=== PATIENT | male | born 1935 | race Two or more races ===

== ENCOUNTER 2018-06-23 16:42 | Inpatient (IN) | payer MEDICARE ==
[2018-06-23] MEDS ORDERED: SODIUM CHLORIDE 0.9% 500 ML 500 ML IV STA (17:37)
[2018-06-23] MEDS ORDERED: ASPIRIN 81 MG PO STA (17:37)
[2018-06-23 17:51] LABS: Basophils % (A) 1 %; Eosinophils # (A) 0.1 k/uL (0-0.7); Eosinophils % (A) 2 %; HCT 50.7 % (39.0-53.0); HGB 16.4 gm/dL (13.0-17.5); Lymphocytes # (A) 1.6 k/uL (1.0-4.8); Lymphocytes % (A) 22 %; MCH 28.8 pg (25.0-35.0); MCHC 32.4 g/dL (31.0-37.0); Mean Platelet Volume 7.1; Monocytes # (A) 0.5 k/uL (0-1.0); Monocytes % (A) 7 %; Neutrophils # (A) 4.9 k/uL (1.3-7.7); Neutrophils % (A) 67 %; Platelet Count 185 k/uL (150-450); RDW 13.4 % (11.5-15.5); WBC 7.3 k/uL (3.8-10.6)
[2018-06-23 18:02] LABS: ALT 22 U/L (21-72); AST 24 U/L (17-59); Albumin 4.3 g/dL (3.5-5.0); Alkaline Phosphatase 53 U/L (38-126); Anion Gap 5 mmol/L; Blood Urea Nitrogen 22 mg/dL (9-20); Calcium 10.1 mg/dL (8.4-10.2); Carbon Dioxide 28 mmol/L (22-30); Chloride 106 mmol/L (98-107); Creatine Kinase 38 U/L (55-170); Glucose 78 mg/dL (74-99); Magnesium 2.4 mg/dL (1.6-2.3); Potassium 4.8 mmol/L (3.5-5.1); Sodium 139 mmol/L (137-145); Total Bilirubin 0.8 mg/dL (0.2-1.3); Total Protein 6.6 g/dL (6.3-8.2)
[2018-06-23 18:06] LABS: INR 1.1 (<1.2); Partial Thromboplastin Time 24.4 sec (22.0-30.0); Prothrombin Time 11.5 sec (9.0-12.0)
--- NOTE | 2018-06-23 18:10 | ED ---
General Adult HPI - General Chief complaint: Arrhythmia/Palpitations Stated complaint: Abnormal EKG-sent from [facility], [place] Time Seen by Provider: 06/23/18 17:10 Source: patient Mode of arrival: wheelchair Limitations: no limitations - History of Present Illness Initial comments: Dictation was produced using IntroBridge dictation software. please excuse any grammatical, word or spelling errors. Chief Complaint: 82-year-old male presents with bradycardia. History of Present Illness: He is 82-year-old male with past medical history of CVA, myocardial infarction, coronary artery disease presents with lightheadedness. Patient is accompanied by family member. He was seen at an outpatient clinic where he was found to be bradycardic. He went immediately to his PCPs office and was brought to the emergency department. Patient had recurrent measured in the 30s. There is an EKG was performed at PCPs office and was found to be really abnormal he was sent here directly. Patient has no complaints at this time. States that upon exertion he feels symptomatic The ROS documented in this emergency department record has been reviewed and confirmed by me. Those systems with pertinent positive or negative responses have been documented in the HPI. All other systems are other negative and/or noncontributory. PHYSICAL EXAM: General Impression: Alert and oriented x3, not in acute distress, cachectic 60 HEENT: Normocephalic atraumatic, extra-ocular movements intact, pupils equal and reactive to light bilaterally, dry mucous membranes Cardiovascular: Heart regular rate and rhythm, S1&S2 audible, no murmurs, rubs o r gallops Chest: Lungs clear to auscultation bilaterally, no rhonchi, no wheeze, no rales Abdomen: Bowel sounds present, abdomen soft, non-tender, non-distended, no organomegaly Musculoskeletal: Pulses present and equal in all extremities, no peripheral edema Motor: no focal deficits noted Neurological: CN II-XII grossly intact, no focal motor or sensory deficits noted Skin: Intact with no visualized rashes Psych: Normal affect and mood ED course: Laboratory evaluation obtained. CBC, coag panel, metabolic panel is unremarkable. Troponin is negative. Chest x-ray shows mild atelectasis at left lung base. Discussed patient case with Dr. Robles who evaluated patient at bedside. Plans for pacemaker tomorrow. He does request patient be nothing by mouth at midnight. Cardiogenic request patient be placed in the intensive care unit. Discussed patient case with Dr. De Leon of [facility] who requests that he not be put on consult. Patient to be admitted to Dr. Sotelo of [facility]. EKG interpretation: Ventricular rate 35, third-degree AV block, QS 184, QTC 474. - Related Data Home Medications Medication Instructions Recorded Confirmed Aspirin 325 mg PO DAILY 06/23/18 06/23/18 Allergies Allergy/AdvReac Type Severity Reaction Status Date / Time No Known Allergies Allergy Verified 06/23/18 17:28 Review of Systems ROS Statement: Those systems with pertinent positive or pertinent negative responses have been documented in the HPI. ROS Other: All systems not noted in ROS Statement are negative. Past Medical History Past Medical History: CVA/TIA, Myocardial Infarction ([place]) History of Any Multi-Drug Resistant Organisms: None Reported Past Surgical History: Coronary Bypass/CABG, Hernia Repair Additional Past Surgical History / Comment(s): 6 Bypass, Past Psychological History: No Psychological Hx Reported Smoking Status: Former smoker Past Alcohol Use History: Daily Past Drug Use History: None Reported General Exam Limitations: no limitations Course Vital Signs 06/23/18 06/23/18 06/23/18 17:06 18:00 18:30 Pulse Rate 36 L 35 L 34 L Respiratory 18 18 18 Rate Blood Pressure 103/92 167/71 159/76 O2 Sat by Pulse 97 98 Oximetry 06/23/18 19:20 Pulse Rate 35 L Respiratory 18 Rate Blood Pressure 151/64 O2 Sat by Pulse 97 Oximetry Medical Decision Making - Lab Data Result diagrams: 06/23/18 17:15 06/23/18 17:15 Lab Results 06/23/18 06/23/18 06/23/18 Range/Units 17:15 17:15 17:15 WBC 7.3 (3.8-10.6) k/uL RBC 5.70 (4.30-5.90) m/uL Hgb 16.4 (13.0-17.5) gm/dL Hct 50.7 (39.0-53.0) % MCV 89.0 (80.0-100.0) fL MCH 28.8 (25.0-35.0) pg MCHC 32.4 (31.0-37.0) g/dL RDW 13.4 (11.5-15.5) % Plt Count 185 (150-450) k/uL Neutrophils % 67 % Lymphocytes % 22 % Monocytes % 7 % Eosinophils % 2 % Basophils % 1 % Neutrophils # 4.9 (1.3-7.7) k/uL Lymphocytes # 1.6 (1.0-4.8) k/uL Monocytes # 0.5 (0-1.0) k/uL Eosinophils # 0.1 (0-0.7) k/uL Basophils # 0.0 (0-0.2) k/uL PT (9.0-12.0) sec INR (<1.2) APTT (22.0-30.0) sec Sodium 139 (137-145) mmol/L Potassium 4.8 (3.5-5.1) mmol/L Chloride 106 (98-107) mmol/L Carbon Dioxide 28 (22-30) mmol/L Anion Gap 5 mmol/L BUN 22 H (9-20) mg/dL Creatinine 0.87 (0.66-1.25) mg/dL Est GFR (CKD-EPI)AfAm >90 (>60 ml/min/1.73 sqM) Est GFR (CKD-EPI)NonAf 82 (>60 ml/min/1.73 sqM) Glucose 78 (74-99) mg/dL Calcium 10.1 (8.4-10.2) mg/dL Magnesium 2.4 H (1.6-2.3) mg/dL Total Bilirubin 0.8 (0.2-1.3) mg/dL AST 24 (17-59) U/L ALT 22 (21-72) U/L Alkaline Phosphatase 53 (38-126) U/L Creatine Kinase 38 L (55-170) U/L CK-MB (CK-2) 1.4 (0.0-2.4) ng/mL Troponin I 0.017 (0.000-0.034) ng/mL Total Protein 6.6 (6.3-8.2) g/dL Albumin 4.3 (3.5-5.0) g/dL 06/23/18 Range/Units 17:15 WBC (3.8-10.6) k/uL RBC (4.30-5.90) m/uL Hgb (13.0-17.5) gm/dL Hct (39.0-53.0) % MCV (80.0-100.0) fL MCH (25.0-35.0) pg MCHC (31.0-37.0) g/dL RDW (11.5-15.5) % Plt Count (150-450) k/uL Neutrophils % % Lymphocytes % % Monocytes % % Eosinophils % % Basophils % % Neutrophils # (1.3-7.7) k/uL Lymphocytes # (1.0-4.8) k/uL Monocytes # (0-1.0) k/uL Eosinophils # (0-0.7) k/uL Basophils # (0-0.2) k/uL PT 11.5 (9.0-12.0) sec INR 1.1 (<1.2) APTT 24.4 (22.0-30.0) sec Sodium (137-145) mmol/L Potassium (3.5-5.1) mmol/L Chloride (98-107) mmol/L Carbon Dioxide (22-30) mmol/L Anion Gap mmol/L BUN (9-20) mg/dL Creatinine (0.66-1.25) mg/dL Est GFR (CKD-EPI)AfAm (>60 ml/min/1.73 sqM) Est GFR (CKD-EPI)NonAf (>60 ml/min/1.73 sqM) Glucose (74-99) mg/dL Calcium (8.4-10.2) mg/dL Magnesium (1.6-2.3) mg/dL Total Bilirubin (0.2-1.3) mg/dL AST (17-59) U/L ALT (21-72) U/L Alkaline Phosphatase (38-126) U/L Creatine Kinase (55-170) U/L CK-MB (CK-2) (0.0-2.4) ng/mL Troponin I (0.000-0.034) ng/mL Total Protein (6.3-8.2) g/dL Albumin (3.5-5.0) g/dL Disposition Clinical Impression: AV block, 3rd degree Disposition: ADMITTED IP TO THIS [facility] Condition: Critical Referrals: Cliff Jonas MD [Primary Care Provider] - 1-2 days Decision Time: 20:03
[2018-06-23 18:23] LABS: Creatine Kinase MB 1.4 ng/mL (0.0-2.4); Troponin I 0.017 ng/mL (0.000-0.034)
--- NOTE | 2018-06-23 19:03 | XR ---
EXAMINATION TYPE: XR chest 1V portable DATE OF EXAM: 06/23/2018 COMPARISON: NONE HISTORY: Short of breath TECHNIQUE: Single frontal view of the chest is obtained. FINDINGS: There is no heart failure nor confluent pneumonic infiltrate. Costophrenic angles are po r. There are sternal wires. There are chest leads. Thoracic aorta is atheromatous. IMPRESSION: There is mild atelectasis left lung base. No heart failure.
[2018-06-23] MEDS ORDERED: NALOXONE 0.4 MG/ML 1 ML VIAL IV PRN (19:50)
[2018-06-23] MEDS ORDERED: SODIUM CHLORIDE 0.9% 1,000 ML IV SCH (20:00)
[2018-06-23 21:07] LABS: Glucose,Whole Blood 129 mg/dL (75-99)
[2018-06-23 21:50] LABS: T4, Free (Free Thyroxine) 1.21 ng/dL (0.78-2.19)
[2018-06-23] MEDS: ATORVASTATIN 40 MG TAB PO SCH (22:48)
--- NOTE | 2018-06-23 22:52 | CONS ---
CONSULTATION Mr. Stone is an 82-year-old male who presented to the emergency room with complete heart block. He has a known history of coronary artery disease status post coronary artery bypass grafting performed in 2002. He had a ischemic cardiomyopathy with ejection fraction of 35%. Prior recommendation for ICD were made and at that time the patient declined. He was seen in a screening yesterday and was noted to have sinus tachycardia. He was referred to see his primary physician who he saw today and his primary care physician did an EKG that showed complete heart block with a heart rate in the 30s. The patient denies any symptoms with it. He feels tired but there are no acute changes. He has no chest pain, mild dyspnea. No dizziness. No palpitation with ambulation. He has some orthostatic dizziness at times. He denies any prior syncopal episode. He has no significant peripheral edema. He has only medication at home include aspirin. He has stopped the rest of his medication on his own. REVIEW OF SYSTEMS: RESPIRATORY system: Has no recent cough or fever. No history of documented obstructive lung disease. GI system: No recent GI bleeding. No peptic ulcer disease. system: No dysuria or hematuria. NERVOUS SYSTEM: No history of seizure. PHYSICAL EXAMINATION: He is an 82-year-old male, alert, oriented, in no apparent distress. Blood pressure 115/70 with a heart rate in the mid 30s. HEAD: Normocephalic. Eyes sclerae anicteric. NECK: Good upstroke. No bruit. LUNGS: Clear to auscultation. HEART: Regular rate and rhythm, bradycardic S1, S2. No S3 with systolic murmur. No diastolic murmur. ABDOMEN: Soft, nontender. Positive bowel sounds. No organomegaly. EXTREMITIES: Trace to 1+ edema at the ankles. LAB DATA: Lab data revealed a hemoglobin of 16.4, BUN and creatinine 22 and 0.87. Troponin 0.017. Magnesium of 2.4. Chest x-ray shows no acute infiltrate. EKG revealed a sinus mechanism with complete heart block and ventricular rate in the 30s. IMPRESSION: 1. Complete heart block of unknown duration. Patient has no significant symptoms. He is not on any negative chronotropic drugs. 2. History of coronary artery disease status post coronary artery bypass grafting with no evidence to suggest acute coronary syndrome. 3. History of ischemic cardiomyopathy. Patient has declined ICD in the past. RECOMMENDATIONS: At this time, the patient will be admitted. He will be set up to undergo a permanent pacemaker implantation tomorrow. I have discussed those findings with him and his daughter. Since he has no symptoms, I will hold on temporary pacemaker at this time. I will obtain echocardiogram with Doppler. His thyroid function test will be evaluated and depending on his progress, further recommendations will be made. Thank you for this consult. We will follow with you. CLAUDIA / VINCE: [id number] /
[2018-06-24] MEDS: LISINOPRIL 2.5 MG TAB PO SCH ×3 (00:24→21:16)
--- NOTE | 2018-06-24 00:50 | P.HPIM ---
History of Present Illness H&P Date: 06/24/18 The patient is an 82 yo M with a PMH of CAD s/p CABG (2002), systolic CHF, dementia, and hx of CVA presented to the ED after he was discovered to have sinus bradycardia at his PMD's office. The history obtained from chart since patient confused at time of the interview. The patient was reported to be having lightheadedness w/ orthostatics positive over the past few days to weeks. He otherwise denied any complaints. He denied chest pain, SOB, nausea, vomiting, or diaphoresis. Further denied palpitations, fever, chills, or abdominal pain. The patient underwent an extensive evaluation in the ED and was notied to have Troponin 0.017, w/ EKG showing 3rd degree heart-block at a rate of 35 bpm, BUN 22, Cr 0.87, and CXR showing L lung base atalectasis. The patient was subsequently admitted to the medical ICU with cardiology consult for further management. Review of Systems Pertinent positives and negatives as discussed in HPI, a complete review of systems was performed and all other systems are negative. Past Medical History Past Medical History: CVA/TIA, Myocardial Infarction ([place]) History of Any Multi-Drug Resistant Organisms: None Reported Past Surgical History: Coronary Bypass/CABG, Hernia Repair Additional Past Surgical History / Comment(s): 6 Bypass, Past Psychological History: No Psychological Hx Reported Smoking Status: Former smoker Past Alcohol Use History: Daily Past Drug Use History: None Reported Medications and Allergies Home Medications Medication Instructions Recorded Confirmed Type Aspirin 325 mg PO DAILY 06/23/18 06/23/18 History Allergies Allergy/AdvReac Type Severity Reaction Status Date / Time No Known Allergies Allergy Verified 06/23/18 17:28 Physical Exam Vitals: Vital Signs Temp Pulse Resp BP Pulse Ox 06/24/18 00:00 98.3 F 42 L 27 H 169/92 93 L 06/23/18 23:30 43 L 24 168/72 06/23/18 23:00 48 L 19 168/72 06/23/18 22:30 37 L 16 168/72 96 06/23/18 22:00 38 L 18 164/68 96 06/23/18 21:30 40 L 16 168/72 95 06/23/18 21:00 42 L 15 95 06/23/18 20:30 41 L 18 161/109 97 06/23/18 20:00 37 L 18 142/82 97 06/23/18 19:20 35 L 18 151/64 97 06/23/18 18:30 34 L 18 159/76 98 06/23/18 18:00 35 L 18 167/71 97 06/23/18 17:06 36 L 18 103/92 Intake and Output 06/23/18 06/23/18 06/24/18 14:59 22:59 06:59 Intake Total 0 20 Output Total 200 150 Balance -200 -130 Intake: IV 0 20 Sodium Chloride 0.9% 1, 0 20 000 ml @ 20 mls/hr IV . Q24H [facility] Rx#:[id number] Output: Urine 200 150 Other: Weight 77.111 kg General: non toxic, no distress, appears at stated age, normal weight Derm: no unusual rashes/lesions no unusual ecchymoses, warm, dry Head: atraumatic, normocephalic, symmetric Eyes: EOMI, no lid lag, anicteric sclera, pupils equal round reactive to light ENT: Nose and ears atraumatic, no thrush, no pharyngeal erythema Neck: No thyromegaly, no cervical lymphadenopathy, trachea midline, supple Mouth: no lip lesion, mucus membranes moist Cardiovascular: S1S2 reg, bradycardia, no murmur, positive posterior tibial pulse bilateral, no edema, capillary refill less than 2 seconds Lungs: CTA bilateral, no rhonchi, no rales , no accessory muscle use Abdominal: soft, nontender to palpation, no guarding, no appreciable organomegaly, normal bowel sounds Ext: no gross muscle atrophy, muscle strength 5 out of 5 in all 4 extremities grossly, no contractures, Neuro: CN II-XI grossly intact, light touch intact all 4 extremities, finger to nose within normal limits, Psych: Oriented only to self, appropriate affect Results CBC & Chem 7: 06/24/18 05:14 06/24/18 05:14 Labs: Abnormal Lab Results - Last 24 Hours (Table) 06/23/18 06/23/18 06/23/18 Range/Units 17:15 17:15 20:56 BUN 22 H (9-20) mg/dL POC Glucose (mg/dL) 129 H (75-99) mg/dL Magnesium 2.4 H (1.6-2.3) mg/dL Creatine Kinase 38 L (55-170) U/L TSH 5.890 H (0.465-4.680) mIU/L Assessment and Plan Plan: 3rd Degree heart-block -Cardiology consulted, recommendations appreciated -Patient will be scheduled for permanent pacemaker placement in the morning -Temporary transcutaneous pacer is available though currently on hold since patient asymptomatic other than some orthostatics -Echocardiogram -TSH ordered by cardiology CAD status post CABG -Continue with aspirin, Lipitor, lisinopril History of CVA -Continue with aspirin and Lipitor DVT prophylaxis -Heparin The patient is admitted with an anticipated greater than 2 midnight stay for evaluation of 3rd degree AV block. CODE STATUS:Full Code Discussed with: Patient Anticipated discharge date: 06/26/[address]: Home A total of 40 minutes was spent on the care of this complex patient more than 50% of the time was spent in counseling and care coordination.
[2018-06-24 05:59] LABS: HCT 48.3 % (39.0-53.0); HGB 15.5 gm/dL (13.0-17.5); MCH 28.6 pg (25.0-35.0); MCV 89.4 fL (80.0-100.0); Mean Platelet Volume 7.1; Platelet Count 191 k/uL (150-450); RDW 13.4 % (11.5-15.5); WBC 6.9 k/uL (3.8-10.6)
[2018-06-24 06:36] LABS: Anion Gap 5 mmol/L; Blood Urea Nitrogen 18 mg/dL (9-20); Calcium 9.4 mg/dL (8.4-10.2); Carbon Dioxide 28 mmol/L (22-30); Chloride 106 mmol/L (98-107); Glucose 90 mg/dL (74-99); Potassium 4.3 mmol/L (3.5-5.1); Sodium 139 mmol/L (137-145)
[2018-06-24] MEDS ORDERED: ceFAZolin IN SWFI 2 GM/20 ML SYRINGE IVP ONE ×2 (08:18→10:51)
[2018-06-24] MEDS: ATORVASTATIN 40 MG TAB PO SCH (08:28)
[2018-06-24] MEDS: ASPIRIN 81 MG PO SCH (08:29)
[2018-06-24] MEDS ORDERED: SODIUM CHLORIDE 0.9% 1,000 ML IV SCH (08:30)
--- NOTE | 2018-06-24 08:35 | PN ---
PROGRESS NOTE Mr. Stone is an 82-year-old male with a history of coronary artery disease, status post coronary artery bypass grafting, history of ischemic cardiomyopathy, who presented with complete heart block. He is awake, confused. Denied any chest pain. He had episode of 1:1 conduction: He has no hypotension. No dizziness. No palpitation. He had no evidence off ventricular tachycardia. He continues to be at this time on aspirin once a day, Lipitor 40 mg daily, Zestril 5 mg twice a day. PHYSICAL EXAMINATION: Blood pressure running in the 140s to 150s with the heart rate in the 30s and 40s. LUNGS: Clear. HEART: Bradycardic, S1, S2. No S3 with systolic murmur. No diastolic murmur. No rub. ABDOMEN: Soft, nontender. EXTREMITIES: No edema. LAB DATA: Lab data revealed BUN creatinine of 18 and 0.74. IMPRESSION: 1. Complete heart block. 2. Status post coronary artery bypass grafting. 3. Ischemic cardiomyopathy. RECOMMENDATION: I will obtain the results of his echocardiogram. The patient has declined an ICD implantation in the past. The patient will be evaluated by Dr. Blackwood to undergo permanent pacemaker implantation today and continue the rest of his medical regimen. Depending on his progress, further recommendation will be made. MMODL / IJN: [id number] /
[2018-06-24] MEDS ORDERED: PANTOPRAZOLE 40 MG/10 ML VIAL IV SCH (09:00)
[2018-06-24] MEDS: HEPARIN SODIUM,PORCINE 5,000 UNIT/ML 1 ML VIAL SQ SCH ×2 (09:25→21:04)
[2018-06-24 09:43] LABS: Glucose,Whole Blood 93 mg/dL (75-99)
[2018-06-24] MEDS ORDERED: LIDOCAINE 1% INJ 10MG/ML (20 ML MDV) ONE (10:11)
[2018-06-24] MEDS ORDERED: ceFAZolin 1,000 MG in SODIUM CHLORIDE 0.9% IRRIGATIO 250 ML IRRIGATION ONE (10:23)
[2018-06-24] MEDS ORDERED: IV FLUID CONTINUATION 1,000 ML IV ONE (10:27)
[2018-06-24] MEDS ORDERED: IOPAMIDOL-250 50ML BTL IV ONE (10:31)
[2018-06-24] MEDS ORDERED: fentaNYL (PF) 50 MCG/ML 2 ML AMP ONE (10:44)
[2018-06-24] MEDS ORDERED: fentaNYL (PF) 50 MCG/ML 2 ML AMP IVP ONE ×2 (10:45→10:58)
[2018-06-24] MEDS ORDERED: LIDOCAINE 1% INJ 10MG/ML (20 ML MDV) SQ ONE ×2 (10:46→11:12)
--- NOTE | 2018-06-24 11:22 | ECHOF ---
Referral Reason:cad MEASUREMENTS -------- HEIGHT: 182.9 cm WEIGHT: 74.4 kg BP: 159/78 IVSd: 1.5 cm (0.6 - 1.1) LVIDd: 4.5 cm (3.9 - 5.3) LVPWd: 1.7 cm (0.6 - 1.1) IVSs: 1.7 cm LVIDs: 4.2 cm LVPWs: 1.7 cm Ao Diam: 3.3 cm (2.0 - 3.7) AV Cusp: 2.4 cm (1.5 - 2.6) LA Diam: 3.2 cm (2.7 - 3.8) MV EXCURSION: 17.007 mm (> 18.000) MV EF SLOPE: 143 mm/s (70 - 150) EPSS: 2.3 cm MV E Colin: 0.98 m/s MV DecT: 265 ms MV A Colin: 0.48 m/s MV E/A Ratio: 2.03 AR PHT: 413 ms RAP: 5.00 mmHg RVSP: 12.60 mmHg FINDINGS -------- Resting bradycardia (HR<60bpm). This was a technically difficult study with suboptimal views. The left ventricular size is normal. There is moderate concentric left ventricular hypertrophy. T here is moderate global hypokinesis of LV . Overall left ventricular systolic function is moderate- severely impaired with, an EF between 30 - 35 %. The right ventricle is normal in size. The left atrial size is normal. The right atrial size is normal. Lumason used Interatrial and interventricular septum intact. Aortic valve is trileaflet and is mildly thickened. There is mild aortic regurgitation. The mitral valve leaflets are mildly thickened. There is trace mitral regurgitation. Trace tricuspid regurgitation present. There is no evidence of pulmonary hypertension. The right ventricular systolic pressure, as measured by Doppler, is 12.60mmHg. Trace/mild (physiologic) pulmonic regurgitation. The aortic root size is normal. IVC Not well visulized. There is no pericardial effusion. CONCLUSIONS -------- 1. Resting bradycardia (HR<60bpm). 2. This was a technically difficult study with suboptimal views. 3. The left ventricular size is normal. 4. There is moderate concentric left ventricular hypertrophy. 5. There is moderate global hypokinesis of LV . 6. Overall left ventricular systolic function is moderate-severely impaired with, an EF between 30 - 35 %. 7. The right ventricle is normal in size. 8. The left atrial size is normal. 9. The right atrial size is normal. 10. Lumason used 11. Interatrial and interventricular septum intact. 12. Aortic valve is trileaflet and is mildly thickened. 13. There is mild aortic regurgitation. 14. The mitral valve leaflets are mildly thickened. 15. There is trace mitral regurgitation. 16. Trace tricuspid regurgitation present. 17. There is no evidence of pulmonary hypertension. 18. The right ventricular systolic pressure, as measured by Doppler, is 12.60mmHg. 19. Trace/mild (physiologic) pulmonic regurgitation. 20. The aortic root size is normal. 21. IVC Not well visulized. 22. There is no pericardial effusion. SEED LABORATORY ASSISTANT: Hawa Dennison RDCS
[2018-06-24] MEDS ORDERED: ACETAMINOPHEN TAB 325 MG TAB PO PRN (12:09)
[2018-06-24] MEDS: ceFAZolin IN SWFI 2 GM/20 ML SYRINGE IVP SCH ×2 (16:56→23:46)
--- NOTE | 2018-06-24 19:47 | HP ---
HISTORY AND PHYSICAL DATE OF ADMISSION: 06/23/2018 DATE OF SERVICE: 06/24/2018 PRESENTING COMPLAINT: Dizzy. Low heart rate. HISTORY OF PRESENTING COMPLAINT: This is a pleasant, very confused 82-year-old gentleman who follows with Dr. Jonas. Chronic stable medical conditions include coronary artery disease, arthritis and dementia. The patient lives with his daughter. He was taken to the his doctor's office for a low heart rate and sometimes becoming a bit dizzy. The patient was sent down to the ER. He was found to be in complete heart block and admitted for the same. Heart rate was in the 30s. Earlier today the patient was taken to the lab and a pacemaker was placed. Most of the history is obtained through the ER notes and from the nurse. The patient himself is pleasantly confused and does not know why he is here. The patient also got a Avalos catheter because of having urinary retention. The patient denies any chest pain or palpitation. REVIEW OF SYSTEMS: CONSTITUTIONAL: None. HEENT: Decreased hearing. RESPIRATORY: None. CARDIOVASCULAR: As above. No chest pain. GASTROINTESTINAL: None. GENITOURINARY: Urinary retention. MUSCULOSKELETAL: Arthritic pain in joints. DERMATOLOGICAL: None. HEMATOLOGICAL: None. LYMPHATICS: None. PSYCHIATRY: Forgetful. NEUROLOGICAL: Does use a cane. PAST MEDICAL HISTORY: Stroke, myocardial infarction. PAST SURGICAL HISTORY: Coronary artery bypass, hernia repair. SOCIAL HISTORY: Did smoke in the past. Some social alcohol. Lives with his daughter. 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 FAMILY HISTORY: Patient cannot tell. HOME MEDICATIONS: Aspirin 325 mg a day. ALLERGIES: NONE. PHYSICAL EXAMINATION: VITAL SIGNS ON PRESENTATION: Afebrile. Pulse 76, respiration 18, blood pressure 103/92, pulse ox 97% on 2 L. GENERAL APPEARANCE: Average build. Sitting up in a chair, comfortable. EYES: Pupils equal. Conjunctivae normal. HEENT: External appearance of nose and ears normal. Oral cavity normal. NECK: JVD not raised. Mass not palpable. RESPIRATORY: Effort normal. LUNGS: Diminished breath sounds. CARDIOVASCULAR: Heart sounds irregular. No edema. ABDOMEN: Soft, non-tender. Liver and spleen not palpable. LYMPHATIC: No lymph node palpable in neck or axillae. PSYCHIATRY: Patient knows his name; not sure about his age. He does not know where he is or why he is here. MUSCULOSKELETAL: Evidence of osteoarthritis in the hands. Left arm in a sling. GENITOURINARY: Has a Avalos catheter in place. INVESTIGATIONS: White count 7.3, hemoglobin 16.4, potassium 4.8, BUN 22, creatinine 0.87. TSH 5.8, free T4 1.21. EKG tracing shows complete heart block with a ventricular rate of 30s. Two-D echo showed EF of 30% to 35%, moderate concentric left ventricular hypertrophy. ASSESSMENT: 1. Symptomatic complete heart block. Now patient has a permanent pacemaker. 2. Chronic congestive heart failure from systolic dysfunction, ejection fraction 30% to 35%. 3. Hypertensive heart disease. 4. Essential hypertension. 5. Primary osteoarthritis. 6. Bladder outflow obstruction, chronic, due to benign prostatic hypertrophy. Currently has a Avalos catheter. 7. Major cognitive impairment, probably from late-onset Alzheimer's dementia. PLAN: Patient has a pacemaker in place. Will get DVT prophylaxis. Will also add Flomax 0.4 mg at night and have a trial of discontinuing the Avalos catheter in the morning. Will also check patient's B12 level in the morning. Currently no other family is present at the bedside. MMODL / IJN: [id number] /
[2018-06-24] MEDS: TAMSULOSIN 0.4 MG CAP.ER.24H PO SCH (21:16)
[2018-06-25] MEDS: ceFAZolin IN SWFI 2 GM/20 ML SYRINGE IVP SCH ×2 (06:20→21:46)
--- NOTE | 2018-06-25 06:52 | XR ---
EXAMINATION TYPE: XR chest 2V DATE OF EXAM: 06/25/2018 HISTORY: Lead placement check. REFERENCE: Previous study dated 06/23/2018. FINDINGS: A bipolar pacemaker has been inserted via a left subclavian approach. Approximately overlie s the right atrium and the distal lead overlies the right ventricle. There is no evidence of pneumoth orax. The heart is mildly enlarged. The lungs are clear. Pleural space are clear. IMPRESSION: 1. SATISFACTORY PACEMAKER PLACEMENT. 2. MILD CARDIOMEGALY.
[2018-06-25] MEDS: HEPARIN SODIUM,PORCINE 5,000 UNIT/ML 1 ML VIAL SQ SCH ×2 (09:18→20:40)
[2018-06-25] MEDS: ATORVASTATIN 40 MG TAB PO SCH (09:19)
[2018-06-25] MEDS: ASPIRIN 81 MG PO SCH (09:19)
[2018-06-25] MEDS: LISINOPRIL 2.5 MG TAB PO SCH ×2 (09:19→20:41)
--- NOTE | 2018-06-25 13:13 | P.PCN ---
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 Postoperative Diagnosis: The same Procedure(s) Performed: Axillary venography, dual-chamber permanent pacemaker implantation Description of Procedure: HISTORY: This is a 82-year-old gentleman with history of cardiomyopathy who was brought to the hospital with complaints of severe bradycardia. He patient was found to have high degree AV block with intermittent A-V dissociation. Patient is advised to have permanent pacemaker implantation. CONSENT:I have discussed the risks, benefits and alternative therapies for the above-mentioned procedure and for both sedation/analgesia as well as necessary blood product administration, if indicated, as they pertain to this patient. The patient has indicated understanding and acceptance of the risks and procedures discussed. PROCEDURE: Temporary pacemaker insertion: This patient is admitted with high degree AV block. A temporary pacemaker was inserted from the right groin. The right groin is infiltrated with lidocaine and a 6-Malagasy sheath was left in. Femoral vein. A balloontipped 5-Malagasy [place] pacemaker wire was advanced and was placed in the right ventricle. A satisfactory position was obtained. The pacemaker is set at a rate of 30 and output of 3. Patient tolerated the procedure well. Permanent pacemaker insertion: Patient was brought to the lab in a fasting state. Patient was prepped and draped in the usual fashion. Patient was given IV sedation with fentanyl and Versed. The skin below the left clavicle was infiltrated with lidocaine. An incision was made parallel to deltopectoral groove was deepened until the pectoral fascia was exposed. A pocket was created by blunt dissection and cautery. Axillary venography was performed to delineate the course of the axillary vein. 2 sticks were performed into extrathoracic portion of the axillary vein and 2 sheaths were advanced over the guidewires and left in subclavian vein. Conscious Sedation: Versed 0mg Fentanyl 12.5 g Duration 81minutes LEADS: ATRIAL: This is manufactured by [employer]. Model number is 4076-52. Serial number is [id number] VENTRICULAR: This is manufactured by [employer]. Model number is 4076-58. Serial number is [id number]. THE DEVICE: This is manufactured by [employer]. Model number is W3DR 01 AND THE SERIAL NUMBER IS [id number]. The ventricular lead is maneuvered l with help of a straight and curved stylets into the left ventricle apical region. Satisfactory position was obtained and threshold measurements were made. The atrial lead was then maneuvered into the right atrial appendage. And thresholds were obtained. THRESHOLDS: ATRIUM:The minimum patient threshold is 0.5 at pulse width of 0.4. The impedance is 9 was 6 [P-wave: 2.7 VENTRICLE:The minimum patient threshold was 1.1 at pulse width of 0.5. The impedance is 1251. The R waves are 23.2 The leads and pulse generator remained in the pocket after it was washed with antibiotics. Pocket was closed in the usual fashion. The fascia was closed with 2-0 Prolene ,the subcutaneous tissue was closed with 3-0 Prolene and the skin was closed with 4-0 Prolene. PROGRAMMING: MODE:DDDR RATE: 60-120 OUTPUT: Atrium: 3.5 V Ventricle: 3.5 V FINAL IMPRESSION: #1. Axillary venography #2. Temporary pacemaker insertion. #3. Insertion of a dual-chamber permanent pacemaker COMPLICATIONS: None PLAN:. Continue current medical therapy. Continue to monitor him on the telemetry unit. Chest x-ray in the morning. Possible discharge within next 24- 48 hours. Continue prophylactic antibiotics]
--- NOTE | 2018-06-25 15:06 | PN ---
PROGRESS NOTE Mr. Stone is an 82-year-old male who has a history of coronary artery disease, severe ischemic cardiomyopathy who presented with complete heart block and bradycardia. He had no dizziness or hemodynamic compromise. His echocardiogram revealed ejection fraction 30% to 35%. He underwent a permanent pacemaker implantation yesterday by Dr. Blackwood and received a dual-chamber pacemaker. He is feeling well this morning, feeling stronger. His breathing is stable. He is denying any chest pain. No dizziness. No palpitation. He had episode of sundown during the night. The plan is to transfer him to a detention. He continues on aspirin, Lipitor 40 mg daily, lisinopril 5 mg twice a day. PHYSICAL EXAMINATION: VITAL SIGNS: Blood pressure 128/60 with a heart rate in the 80s. LUNGS: Clear. HEART: Regular rate and rhythm S1, S2. No S3. No rub. ABDOMEN: Soft and nontender. EXTREMITIES: No edema. Pacemaker site clean. LAB DATA: Lab data revealed a BUN and creatinine of 18 and 0.74. Chest x-ray showed no pneumothorax. IMPRESSION: 1. Complete heart block status post permanent pacemaker implantation. 2. Severe ischemic cardiomyopathy. 3. Status post coronary artery bypass grafting. 4. Episode of confusion. 5. Hyperlipidemia. RECOMMENDATION: We will continue present therapy. Follow his renal function. Increase his level of activity and once long-term care plans are stable, patient can be transferred out. CLAUDIA / VINCE: [id number] /
--- NOTE | 2018-06-25 15:35 | PN ---
PROGRESS NOTE PRESENTING COMPLAINT: Tired. INTERVAL HISTORY: This patient admitted with complete heart block status post dual-chamber permanent pacemaker. The patient's daughter is present here. The patient is a bit tired. Otherwise, tolerating a diet. Looking into patient going to the [facility]. boom worker has been called. REVIEW OF SYSTEMS: Done for constitutional, cardiovascular, GI, pulmonary; relevant findings as above. CURRENT MEDICATIONS: Reviewed. PHYSICAL EXAMINATION: VITAL SIGNS: Temperature 97.7, pulse 80, respiratory 18, blood pressure 120/67, pulse ox 93 percent on room air. GENERAL APPEARANCE: Sitting up, awake. EYES: Pupils equal. Conjunctivae normal. NECK: JVD not raised. Mass not palpable. RESPIRATORY: Effort normal. LUNGS: Diminished breath sounds. CARDIOVASCULAR: 1st and 2nd sounds normal. No edema. ABDOMEN: Soft, nontender. Liver and spleen not palpable. PSYCHIATRY: The patient able to answer simple questions. EXTREMITIES: Left arm in a sling. INVESTIGATIONS: No blood work from today. ASSESSMENT: 1. Symptomatic complete heart block. The patient has dual-chamber permanent pacemaker. 2. Chronic congestive heart failure from systolic dysfunction, EF 30-35 percent from underlying hypertensive heart disease. 3. Hypertensive heart disease. 4. Essential hypertension. 5. Primary osteoarthritis. 6. 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 7. Major cognitive impairment probably from late onset Alzheimer's dementia. PLAN: Spoke to patient's daughter looking at patient going to rehab. Follow. MMCRISTELL / NESTORN: [id number] /
[2018-06-25] MEDS: TAMSULOSIN 0.4 MG CAP.ER.24H PO SCH (18:55)
[2018-06-26 07:13] LABS: Anion Gap 4 mmol/L; Blood Urea Nitrogen 17 mg/dL (9-20); Calcium 9.2 mg/dL (8.4-10.2); Carbon Dioxide 27 mmol/L (22-30); Chloride 107 mmol/L (98-107); Glucose 89 mg/dL (74-99); Potassium 4.3 mmol/L (3.5-5.1); Sodium 138 mmol/L (137-145)
[2018-06-26] MEDS: ASPIRIN 81 MG PO SCH (08:54)
[2018-06-26] MEDS: LISINOPRIL 2.5 MG TAB PO SCH ×2 (08:54→22:21)
[2018-06-26] MEDS: ATORVASTATIN 40 MG TAB PO SCH (08:54)
[2018-06-26] MEDS: HEPARIN SODIUM,PORCINE 5,000 UNIT/ML 1 ML VIAL SQ SCH ×2 (08:55→20:30)
[2018-06-26] MEDS: CARVEDILOL 6.25 MG TAB PO SCH ×2 (08:56→19:11)
--- NOTE | 2018-06-26 10:14 | PN ---
PROGRESS NOTE Mr. Stone is an 82-year-old male with known history of severe ischemic cardiomyopathy who presented with complete heart block and underwent permanent pacemaker implantation. He has episode of confusion. He is appears to be stable this morning. He is denying any chest pain. Hemodynamically, he is stable. He has no evidence of pacemaker malfunction. He continues to have episode of confusion and the plan is to transfer to extended care facility tomorrow. He continues to be on aspirin 81 mg daily, Lipitor 40 mg daily, Zestril 5 mg twice a day. PHYSICAL EXAMINATION: Blood pressure running in the 140s to 150s with a heart rate in the 90s. LUNGS: Clear. HEART: Regular rate and rhythm, S1, S2. No S3. No rub. ABDOMEN: Soft, nontender. EXTREMITIES: No edema. Pacemaker site is clean. IMPRESSION: 1. Severe ischemic cardiomyopathy. 2. Complete heart block status post permanent pacemaker implantation. 3. Hypertension. 4. Confusion. RECOMMENDATION: I will add a beta sarah to his regimen. Continue rest of his medical regimen. Increase his level of activity. I am hopeful he will be able to be transferred to extended care facility by tomorrow. MMCRISTELL / NESTORN: [id number] /
[2018-06-26] MEDS: TAMSULOSIN 0.4 MG CAP.ER.24H PO SCH (19:11)
[2018-06-26 20:58] LABS: Glucose,Whole Blood 88 mg/dL (75-99)
--- NOTE | 2018-06-26 22:17 | PN ---
PROGRESS NOTE DATE OF SERVICE: June 25, 2018. ADDENDUM: My progress note dictated on June 25, 2018 at 1:55 pm. The correct date of service is June 25, 2018. MMODL / IJN: [id number] /
--- NOTE | 2018-06-26 22:17 | PN ---
PROGRESS NOTE DATE OF SERVICE: 06/26/2018. PRESENTING COMPLAINT: Occasionally confused. INTERVAL HISTORY: Patient admitted with complete heart block, status post dual-chamber permanent pacemaker. Had urine retention this morning. Avalos catheter in place. Already on Flomax. The patient at baseline has got dementia. REVIEW OF SYSTEMS: Done for constitutional, cardiovascular, GI, pulmonary; relevant findings as above. CURRENT MEDICATIONS: Reviewed. PHYSICAL EXAMINATION: VITAL SIGNS: Temperature 97.9, pulse 72, respiratory 18, blood pressure 167/92, pulse ox 96 percent room air. GENERAL APPEARANCE: Sitting up, awake, tired. EYES: Pupils equal. Conjunctivae normal. NECK: JVD not raised. Mass not palpable. Respiratory effort normal. LUNGS: Decreased breath sounds. CARDIOVASCULAR: First and second heart sounds. No edema. SKIN: Chest wall permanent pacemaker in place. PSYCHIATRY: The patient is able to answer simple questions. INVESTIGATIONS: Potassium 4.3. ASSESSMENT: 1. Symptomatic complete heart block. The patient has a dual-chamber permanent pacemaker. 2. Chronic congestive heart failure from systolic dysfunction, EF 30 to 35% from underlying hypertensive heart disease. 3. Hypertensive heart disease. 4. Essential hypertension. 5. Primary osteoarthritis. 6. 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 Avalos catheter was again placed today. 7. Major cognitive impairment from late onset Alzheimer's dementia. PLAN: Looking at the patient to go to see if qualifies for rehab. Otherwise, patient is medically stable. MMODL / IJN: [id number] /
[2018-06-26] MEDS: QUEtiapine 25 MG TAB PO SCH (22:20)
[2018-06-26 23:13] LABS: Basophils % (A) 0 %; Eosinophils # (A) 0.2 k/uL (0-0.7); Eosinophils % (A) 2 %; HGB 15.3 gm/dL (13.0-17.5); Lymphocytes % (A) 12 %; MCH 28.1 pg (25.0-35.0); MCHC 31.8 g/dL (31.0-37.0); MCV 88.3 fL (80.0-100.0); Mean Platelet Volume 7.1; Monocytes # (A) 0.5 k/uL (0-1.0); Monocytes % (A) 6 %; Neutrophils # (A) 6.8 k/uL (1.3-7.7); Neutrophils % (A) 79 %; Platelet Count 161 k/uL (150-450); RBC 5.44 m/uL (4.30-5.90); RDW 13.3 % (11.5-15.5); WBC 8.7 k/uL (3.8-10.6)
[2018-06-27] MEDS: CARVEDILOL 6.25 MG TAB PO SCH ×2 (07:11→18:35)
[2018-06-27] MEDS: LISINOPRIL 2.5 MG TAB PO SCH ×2 (08:48→20:28)
[2018-06-27] MEDS: ASPIRIN 81 MG PO SCH (08:48)
[2018-06-27] MEDS: ATORVASTATIN 40 MG TAB PO SCH (08:48)
[2018-06-27] MEDS: HEPARIN SODIUM,PORCINE 5,000 UNIT/ML 1 ML VIAL SQ SCH ×2 (11:35→20:27)
--- NOTE | 2018-06-27 12:40 | DS ---
DISCHARGE SUMMARY DATE OF ADMISSION: 06/23/2018 DATE OF DISCHARGE: 06/27/2018 FINAL DIAGNOSES: 1. Complete heart block resulting in placement of a dual-chamber permanent pacemaker. 2. Chronic congestive heart failure from systolic dysfunction, ejection fraction 30% to 35% from underlying hypertensive heart disease. 3. Hypertensive heart disease. 4. Essential hypertension. 5. Primary osteoarthritis. 6. Bladder outflow obstruction due to benign prostatic hypertrophy. 7. Traumatic hematuria from Avalos catheter. 8. Major cognitive impairment from late onset Alzheimer's dementia. CONSULTATION: Dr. Lawrence from Cardiology; Dr. Blackwood put in the pacemaker; urology. HOSPITAL COURSE: This patient presented weak, tired, found to be in complete heart block, dual-chamber pacemaker was placed. The patient is having urinary retention, started on Flomax. Did pull the Avalos out, had some hematuria. The patient will be seen by Urology today and final decision will be made about the same. On examination, temperature 97.8, pulse 66, respiratory 18, blood pressure 164/91, pulse ox 95% on room air. LUNGS: Are clear. CARDIOVASCULAR: First and second sounds normal. Hemoglobin is 15.3. DISCHARGE MEDICATIONS: 1. Tylenol 650 mg q.6 p.r.n. 2. Aspirin 81 mg p.o. daily. 3. Lipitor 40 mg p.o. daily. 4. Coreg 6.25 p.o. b.i.d. 5. Zestril 5 mg p.o. b.i.d. 6. Seroquel 25 mg p.o. q.h.s. 7. Flomax 0.4 mg supper. Follow up with Dr. Jonas at the [facility]. Follow up with Dr. Blackwood in 1 week. Follow up at the pacemaker clinic. Follow up with Urology. Avalos catheter as per Urology. MMODL / IJN: [id number] /
--- NOTE | 2018-06-27 13:56 | P.PN ---
Subjective Progress Note Date: 06/27/18 This is a pleasant 82-year-old gentleman with history of severe ischemic cardiomyopathy who presented to the hospital and complete heart block and underwent implantation of a permanent pacemaker. He was seen and examined this morning, denies any chest pain dizziness or lightheadedness. Hemodyna mically he remained stable. He does continue to have episodes of confusion and is being transferred to an extended care facility Objective - Vital Signs Vital signs: Vital Signs Temp 97.8 F 06/27/18 11:13 Pulse 66 06/27/18 11:13 Resp 18 06/27/18 11:13 BP 164/91 06/27/18 11:13 Pulse Ox 95 06/27/18 11:13 Intake & Output 06/26/18 06/27/18 06/27/18 18:59 06:59 18:59 Intake Total 200 240 280 Output Total 1100 1 2 Balance -900 239 278 Intake: Oral 200 240 280 Output: Urine 1100 Stool 1 2 Other: Voiding Method Indwelling Catheter Urinal Urinal Diaper Diaper # Voids 3 3 # Bowel Movements 2 - Exam PHYSICAL EXAMINATION: GENERAL: 82-year-old gentleman in no acute distress at the time of my examination HEENT: Head is atraumatic, normocephalic. Pupils equal, round. Sclera anicteric. Conjunctiva are clear. Mucous membranes of the mouth are moist. Neck is supple. There is no elevated jugular venous pressure. No carotid bruit is heard. HEART EXAMINATION: Heart S1, S2 normal. No murmur or gallop heard. CHEST EXAMINATION: Lungs are clear to auscultation and precussion. No chest wall tenderness is noted on palpation or with deep breathing. Pacemaker site clean and dry. ABDOMEN: Soft, nontender. Bowel sounds are heard. No organomegaly noted. EXTREMITIES: 2+ peripheral pulses with no evidence of peripheral edema and no calf tenderness noted. NEUROLOGIC patient is awake, alert and oriented 3 . . - Labs CBC & Chem 7: 06/26/18 22:34 06/26/18 05:55 Assessment and Plan Plan: Assessment and plan #1 severe ischemic cardio myopathy #2 status post implantation of permanent pacemaker for complete heart block #3 hypertension #4 intermittent confusion Plan From cardiology's perspective, the patient may be transferred to an extended care facility today. We'll make a follow-up appointment in the device clinic post discharge. DNP note has been reviewed, I agree with a documented findings and plan of care. Patient was seen and examined.
--- NOTE | 2018-06-27 16:38 | P.GSCN ---
History of Present Illness Consult date: 06/27/18 Reason for Consult: Hematuria and urinary retention History of present illness: The patient was noted to have asymptomatic bradycardia as an outpatient and was admitted for further evaluation as his heart rate was in the 30s. He underwent placement of a pacemaker on 06/25. While in the intensive care unit he developed urinary retention. Unfortunately the amount drained when his catheter was placed was never recorded but a bladder scan done shortly before it was placed showed a little over 500 mL. He reportedly failed a voiding trial. The patient apparently remove the catheter himself since that time with the balloon inflated. The catheter was reinserted and is currently draining light pink tinged urine. The patient is confused and is an extremely poor historian. I spoke with his daughter, Kristine, by phone. He has no previous history of urinary retention or gross hematuria. He would sometimes void frequently but she was unaware of any urinary incontinence. He has not seen a physician on a regular basis in several years. Review of Systems ROS unobtainable: due to mental status Past Medical History Past Medical History: CVA/TIA, Myocardial Infarction (NH) Last Myocardial Infarction Date:: 1994 History of Any Multi-Drug Resistant Organisms: None Reported Past Surgical History: Coronary Bypass/CABG, Hernia Repair (Bilateral inguinal hernia repair) Additional Past Surgical History / Comment(s): 6 Bypass, Past Psychological History: No Psychological Hx Reported Smoking Status: Former smoker Past Alcohol Use History: Daily Past Drug Use History: None Reported Medications and Allergies Home Medications Medication Instructions Recorded Confirmed Type Acetaminophen Tab [Tylenol] 650 mg PO Q6HR PRN tab 06/27/18 Rx Aspirin 81 mg PO DAILY chew 06/27/18 Rx Atorvastatin [Lipitor] 40 mg PO DAILY tab 06/27/18 Rx Carvedilol [Coreg] 6.25 mg PO BID-W/MEALS tab 06/27/18 Rx Lisinopril [Zestril] 5 mg PO BID tab 06/27/18 Rx QUEtiapine [SEROquel] 25 mg PO HS #0 tab 06/27/18 Rx Tamsulosin [Flomax] 0.4 mg PO PC-SUPPER cap.er.24h 06/27/18 Rx Allergies Allergy/AdvReac Type Severity Reaction Status Date / Time No Known Allergies Allergy Verified 06/23/18 17:28 Surgical - Exam Vital Signs Pulse Resp BP 36 L 18 103/92 06/23/18 17:06 06/23/18 17:06 06/23/18 17:06 - General well developed, well nourished, no distress - ENT no hearing loss - Neck no masses, no lymphadectomy - Abdomen Abdomen: soft, non tender, no organomegaly Hernia: none - Genitourinary normal penis with no external lesions, testicles non-tender - Rectum Rectum: normal sphincter tone, no masses, other (Ross date is 2+ enlarged, smooth and benign in consistency) Results - Labs 06/26/18 22:34 06/26/18 05:55 Assessment and Plan (1) Gross hematuria Narrative/Plan: The patient's gross hematuria is most likely related to self removal of his Avalos catheter with the balloon inflated. It is most likely bleeding from the region of the prostate and urethra. It appears to have almost completely cleared since his catheter was reinserted. Current Visit: Yes Status: Acute Code(s): R31.0 - GROSS HEMATURIA SNOMED Code(s): 104963004 (2) Urinary retention Narrative/Plan: The source of the patient's urinary retention is unclear. Unfortunately the patient is a very poor historian and his daughter was unable to provide much in the way of his voiding pattern prior to being admitted. I would suggest leaving the catheter in place for 2 or 3 days prior to another attempt at voiding. He will be transferred to a [facility] and hopefully a bladder scan can be done shortly after the catheter is removed to ensure that he is voiding completely. It may be of benefit to begin tamsulosin unless there is a medical reason not to start this. Current Visit: Yes Status: Acute Code(s): R33.9 - RETENTION OF URINE, UNSPECIFIED SNOMED Code(s): 049327470
[2018-06-27] MEDS: TAMSULOSIN 0.4 MG CAP.ER.24H PO SCH (18:35)
[2018-06-27] MEDS: QUEtiapine 25 MG TAB PO SCH (20:28)
[2018-06-27] MEDS ORDERED: LISINOPRIL 5 MG TAB PO STA (21:53)
[2018-06-27] MEDS ORDERED: LISINOPRIL-HCTZ 10-12.5 MG 1 EACH TAB PO SCH (22:00)
--- NOTE | 2018-06-28 00:26 | PN ---
PROGRESS NOTE DATE OF SERVICE: 06/27/2018 PRESENTING COMPLAINT: Hematuria. INTERVAL HISTORY: The patient admitted with complete heart block status post dual-chamber permanent pacemaker. Had urine retention. The patient did pull out his Avalos catheter, was having some hematuria injury. Followed for urine retention and another Avalos catheter was placed. Urology was consulted. The patient was due to go to the [facility]. Otherwise, patient tolerating a diet. Sitting up, comfortable. REVIEW OF SYSTEMS: Done for constitutional, cardiovascular, GI, pulmonary; relevant findings as above. CURRENT MEDICATIONS: Reviewed. PHYSICAL EXAMINATION: VITAL SIGNS: Temperature 97.8, pulse 56, respiratory 18, blood pressure 164/91, pulse ox 95% on room air. GENERAL APPEARANCE: Sitting up, awake. EYES: Pupils equal. Conjunctivae normal. NECK: JVD not raised. Mass not palpable. RESPIRATORY: Effort normal. LUNGS: Decreased breath sounds. CARDIOVASCULAR: 1st and 2nd sounds normal. No edema. ABDOMEN: Soft, nontender. Liver and spleen not palpable. PSYCHIATRY: Awake, does answer simple questions. INVESTIGATIONS: No blood work from today. ASSESSMENT: 1. Complete heart block. The patient now has a dual-chamber permanent pacemaker. 2. Chronic congestive heart failure from systolic dysfunction EF 30-35 percent from hypertensive heart disease. 3. Hypertensive heart disease. 4. Essential hypertension. 5. Primary osteoarthritis. 6. Bladder outflow obstruction due to probably benign prostatic hypertrophy. Avalos catheter in place. 7. Traumatic hematuria. Avalos catheter remains. 8. Major cognitive impairment probably from late onset Alzheimer's dementia. PLAN: I was informed that the patient does not have an authorization for the rehab and also pending physical therapy notes, discharge has been held for today. We will adjust blood pressure medications. MMODL / IJN: [id number] /
[2018-06-28] MEDS: CARVEDILOL 6.25 MG TAB PO SCH ×2 (08:09→17:37)
[2018-06-28] MEDS: ASPIRIN 81 MG PO SCH (09:15)
[2018-06-28] MEDS: HEPARIN SODIUM,PORCINE 5,000 UNIT/ML 1 ML VIAL SQ SCH ×2 (09:15→21:21)
[2018-06-28] MEDS: ATORVASTATIN 40 MG TAB PO SCH (09:15)
[2018-06-28] MEDS: LISINOPRIL 10 MG TAB PO SCH ×2 (09:15→21:21)
--- NOTE | 2018-06-28 15:16 | P.PN ---
Subjective Progress Note Date: 06/28/18 This is a pleasant 82-year-old gentleman with history of severe ischemic cardiomyopathy who presented to the hospital and complete heart block and underwent implantation of a permanent pacemaker. He was seen and examined this morning, denies any chest pain dizziness or lightheadedness. Hemodyna mically he remained stable. He does continue to have episodes of confusion and is being transferred to an extended care facility. 06/28/2018 Patient was seen and examined this morning, arrangements are being made for him to go to [facility] today. His children are at bedside. Blood pressure 1 22/70, heart rate in the 80s, 95% on room air. Blood cell count 8.1, hemoglobin 15.3, platelet count 161. Objective - Vital Signs Vital signs: Vital Signs Temp 97 F L 06/28/18 12:00 Pulse 81 06/28/18 08:30 Resp 18 06/28/18 12:00 BP 151/83 06/28/18 12:00 Pulse Ox 95 06/28/18 12:00 Intake & Output 06/27/18 06/28/18 06/28/18 18:59 06:59 18:59 Intake Total 280 120 240 Output Total 575 546 9112 Balance -953 -693 -6036 Weight 74.7 kg Intake: Oral 280 120 240 Output: Urine 821 028 8308 Straight 500 Uretheral (Avalos) 450 Stool 3 1 Other: Voiding Method Urinal Toilet Diaper Urinal # Voids 3 2 # Bowel Movements 1 - Exam PHYSICAL EXAMINATION: GENERAL: 82-year-old gentleman in no acute distress at the time of my examination HEENT: Head is atraumatic, normocephalic. Pupils equal, round. Sclera anicteric. Conjunctiva are clear. Mucous membranes of the mouth are moist. Neck is supple. There is no elevated jugular venous pressure. No carotid bruit is heard. HEART EXAMINATION: Heart S1, S2 normal. No murmur or gallop heard. CHEST EXAMINATION: Lungs are clear to auscultation and precussion. No chest wall tenderness is noted on palpation or with deep breathing. Pacemaker site clean and dry. ABDOMEN: Soft, nontender. Bowel sounds are heard. No organomegaly noted. EXTREMITIES: 2+ peripheral pulses with no evidence of peripheral edema and no calf tenderness noted. NEUROLOGIC patient is awake, alert and oriented 2 . . - Labs CBC & Chem 7: 06/26/18 22:34 06/26/18 05:55 Assessment and Plan Plan: Assessment and plan #1 severe ischemic cardio myopathy #2 status post implantation of permanent pacemaker for complete heart block #3 hypertension #4 intermittent confusion Plan From cardiology's perspective, the patient may be transferred to an extended care facility today. We'll make a follow-up appointment in the device clinic post discharge. DNP note has been reviewed, I agree with a documented findings and plan of care. Patient was seen and examined.
[2018-06-28] MEDS: TAMSULOSIN 0.4 MG CAP.ER.24H PO SCH (17:37)
[2018-06-28 20:56] LABS: Glucose,Whole Blood 94 mg/dL (75-99)
[2018-06-28] MEDS: QUEtiapine 25 MG TAB PO SCH (21:21)
[2018-06-29 05:59] LABS: Basophils % (A) 1 %; Eosinophils # (A) 0.2 k/uL (0-0.7); Eosinophils % (A) 4 %; HCT 41.2 % (39.0-53.0); HGB 13.2 gm/dL (13.0-17.5); Lymphocytes # (A) 1.2 k/uL (1.0-4.8); Lymphocytes % (A) 23 %; MCH 28.2 pg (25.0-35.0); MCHC 31.9 g/dL (31.0-37.0); MCV 88.3 fL (80.0-100.0); Mean Platelet Volume 7.1; Monocytes # (A) 0.3 k/uL (0-1.0); Monocytes % (A) 6 %; Neutrophils # (A) 3.4 k/uL (1.3-7.7); Neutrophils % (A) 66 %; Platelet Count 158 k/uL (150-450); RBC 4.67 m/uL (4.30-5.90); RDW 13.2 % (11.5-15.5); WBC 5.1 k/uL (3.8-10.6)
--- NOTE | 2018-06-29 06:06 | PN ---
PROGRESS NOTE DATE OF SERVICE: 06/28/2018 PRESENTING COMPLAINT: Hematuria. INTERVAL HISTORY: Patient admitted with complete heart block, status post dual-chamber permanent pacemaker. Has underlying dementia. The patient had hematuria from Avalos catheter being pulled out. Nurse reaching Urology this afternoon. Also insurance authorization pending for discharge. Otherwise, patient is sitting up, comfortable. REVIEW OF SYSTEMS: Done for constitutional, cardiovascular, GI, pulmonary; relevant findings as above. MEDICATIONS: Current medications are reviewed. PHYSICAL EXAMINATION: On examination, afebrile, pulse 81, respiratory 18, blood pressure 151/83, pulse ox 95% on room air. GENERAL APPEARANCE: Sitting up, awake. EYES: Pupils equal. Conjunctivae normal. NECK: JVD not raised. Mass not palpable. RESPIRATORY: Effort normal. LUNGS: Decreased breath sounds. CARDIOVASCULAR: First and second sounds normal. No edema. ABDOMEN: Soft, nontender. Liver and spleen not palpable. PSYCHIATRY: Awake, answering simple questions. INVESTIGATIONS: No blood work today. ASSESSMENT: 1. Complete heart block. The patient has a dual-chamber permanent pacemaker. 2. Chronic congestive heart failure from systolic dysfunction, ejection fraction 30% to 35% from hypertensive heart disease. 3. Hypertensive heart disease. 4. Essential hypertension. 5. Primary osteoarthritis. 6. Bladder outflow obstruction probably due to benign prostatic hypertrophy. 7. Traumatic hematuria. Avalos catheter was pulled out. 8. Major cognitive impairment probably from late onset Alzheimer's dementia. PLAN: Spoke to the pillowcase cutter and manager social media, pending authorization from insurance company. Avalos catheter placement will be determined as per Urology. Recheck hemoglobin in the morning. MMODL / IJN: [id number] /
[2018-06-29 06:16] LABS: Glucose,Whole Blood 88 mg/dL (75-99)
[2018-06-29 06:18] LABS: Anion Gap 2 mmol/L; Blood Urea Nitrogen 17 mg/dL (9-20); Calcium 8.8 mg/dL (8.4-10.2); Carbon Dioxide 29 mmol/L (22-30); Chloride 106 mmol/L (98-107); Glucose 79 mg/dL (74-99); Potassium 3.9 mmol/L (3.5-5.1); Sodium 137 mmol/L (137-145)
[2018-06-29 09:59] VITALS: BP 126/64; PULSE 79; RESP 16; TEMP 97.5
[2018-06-29] MEDS: ATORVASTATIN 40 MG TAB PO SCH (10:00)
[2018-06-29] MEDS: LISINOPRIL 10 MG TAB PO SCH (10:01)
[2018-06-29] MEDS: CARVEDILOL 6.25 MG TAB PO SCH (10:01)
[2018-06-29] MEDS: HEPARIN SODIUM,PORCINE 5,000 UNIT/ML 1 ML VIAL SQ SCH (10:02)
[2018-06-29] MEDS: ASPIRIN 81 MG PO SCH (10:02)
[2018-06-29 11:53] LABS: Glucose,Whole Blood 100 mg/dL (75-99)
--- NOTE | 2018-06-29 16:30 | P.PN ---
Subjective Progress Note Date: 06/29/18 This is a pleasant 82-year-old gentleman with history of severe ischemic cardiomyopathy who presented to the hospital and complete heart block and underwent implantation of a permanent pacemaker. He was seen and examined this morning, denies any chest pain dizziness or lightheadedness. Hemodyna mically he remained stable. He does continue to have episodes of confusion and is being transferred to an extended care facility. 06/28/2018 Patient was seen and examined this morning, arrangements are being made for him to go to [facility] today. His children are at bedside. Blood pressure 1 /70, heart rate in the 80s, 95% on room air. Blood cell count 8.1, hemoglobin 15.3, platelet count 161. 06/29/2018 Patient was seen and examined this morning, overall doing well. Anticipating tr ansferred to ECF today. Hemodynamically stable. Objective - Vital Signs Vital signs: Vital Signs Temp 97.5 F L 06/29/18 08:00 Pulse 79 06/29/18 08:00 Resp 16 06/29/18 08:00 BP 126/64 06/29/18 08:00 Pulse Ox 95 06/29/18 08:00 Intake & Output 06/28/18 06/29/18 06/29/18 18:59 06:59 18:59 Intake Total 480 360 Output Total 1825 2374 400 Balance -1345 -2374 -40 Weight 75 kg Intake: Oral 480 360 Output: Urine 1825 1300 400 Straight 500 400 Post Void Residual 1074 Other: Voiding Method Toilet Toilet Urinal # Voids 0 # Bowel Movements 1 - Exam PHYSICAL EXAMINATION: GENERAL: 82-year-old gentleman in no acute distress at the time of my examination HEENT: Head is atraumatic, normocephalic. Pupils equal, round. Sclera anicteric. Conjunctiva are clear. Mucous membranes of the mouth are moist. Neck is supple. There is no elevated jugular venous pressure. No carotid bruit is heard. HEART EXAMINATION: Heart S1, S2 normal. No murmur or gallop heard. CHEST EXAMINATION: Lungs are clear to auscultation and precussion. No chest wall tenderness is noted on palpation or with deep breathing. Pacemaker site clean and dry. ABDOMEN: Soft, nontender. Bowel sounds are heard. No organomegaly noted. EXTREMITIES: 2+ peripheral pulses with no evidence of peripheral edema and no calf tenderness noted. NEUROLOGIC patient is awake, alert and oriented 2 . . - Labs CBC & Chem 7: 06/29/18 05:29 06/29/18 05:29 Labs: Abnormal Lab Results - Last 24 Hours (Table) 06/29/18 Range/Units 11:43 POC Glucose (mg/dL) 100 H (75-99) mg/dL Assessment and Plan Plan: Assessment and plan #1 severe ischemic cardio myopathy #2 status post implantation of permanent pacemaker for complete heart block #3 hypertension #4 intermittent confusion Plan From cardiology's perspective, the patient may be transferred to an extended care facility today. We'll make a follow-up appointment in the device clinic post discharge. DNP note has been reviewed, I agree with a documented findings and plan of care. Patient was seen and examined.
--- NOTE | 2018-06-30 11:00 | DS ---
DISCHARGE SUMMARY DATE OF ADMISSION: 06/23/2018 DATE OF DISCHARGE: 06/29/2018 FINAL DIAGNOSES: 1. Complete heart block resulting in placement of dual-chamber permanent pacemaker. 2. Chronic congestive heart failure from systolic dysfunction, ejection fraction 30% to 35%, from underlying hypertensive heart disease. 3. Hypertensive heart disease. 4. Essential hypertension. 5. Primary osteoarthritis. 6. Bladder outflow obstruction due to benign prostatic hypertrophy. 7. Traumatic hematuria from Avalos catheter being pulled out. 8. Major cognitive impairment from late onset Alzheimer's dementia. CONSULTATION: Dr. Lawrence from Cardiology; Dr. Blackwood did put the pacemaker; Dr. Kincaid from Urology. HOSPITAL COURSE: This patient presented with incomplete heart block, did have a permanent pacemaker placed. The patient had advanced dementia. Because of a new setting, patient did have some episodes of altered behavior. The patient was having urinary retention. Avalos catheter was placed that he had pulled out. There was some traumatic hematuria. Before discharge Avalos catheter was ordered to be placed per Urology. They will follow up for the same. Patient is otherwise tolerating a diet. On examination, temperature 97.5, pulse 79, respiration 16, blood pressure 126/64, pulse ox 95% on room air. The patient is able answer simple questions. LUNGS: Decreased breath sounds. CARDIOVASCULAR: First and second sounds normal. INVESTIGATIONS: Hemoglobin 13.2. BUN and creatinine normal. DISCHARGE MEDICATIONS: 1. Tylenol 650 mg q.6 p.r.n. 2. Aspirin 81 mg p.o. daily. 3. Lipitor 40 mg p.o. daily. 4. Coreg 6.25 p.o. b.i.d. 5. Seroquel 25 mg p.o. q.h.s. 6. Flomax 0.4 mg p.c. supper. 7. Zestril 10 mg p.o. b.i.d. DISPOSITION: [facility]. Follow up with Dr. Jonas. Follow up with Dr. Lawrence on 06/30/2018. Follow up with Dr. Rosenbaum in 1 week. Follow up with [facility] in 1 week. Other instructions as per pacemaker clinic. MMODL / IJN: [id number] /
== END 2018-06-29 15:12 | DRG 243 ==
LOC: EC 16:42 → 2SICU 19:50 → 3SCARD 06-24 20:29
PROVIDERS: ADMIT Internal Medicine; ATTEND Hospitalist
DX: I44.2 Atrioventricular block, complete (principal); I50.22 Chronic systolic (congestive) heart failure; N13.8 Other obstructive and reflux uropathy; F02.81 Dementia in other diseases classified elsewhere, unspecified severity, with behavioral disturbance; I25.10 Atherosclerotic heart disease of native coronary artery without angina pectoris; I25.5 Ischemic cardiomyopathy; I11.0 Hypertensive heart disease with heart failure; M19.91 Primary osteoarthritis, unspecified site; N32.0 Bladder-neck obstruction; N40.1 Benign prostatic hyperplasia with lower urinary tract symptoms; F02.80 Dementia in other diseases classified elsewhere, unspecified severity, without behavioral disturbance, psychotic disturbance, mood disturbance, and anxiety; G30.1 Alzheimer's disease with late onset; R31.9 Hematuria, unspecified; G30.9 Alzheimer's disease, unspecified; R53.1 Weakness; E78.5 Hyperlipidemia, unspecified; R31.0 Gross hematuria; I45.89 Other specified conduction disorders; Z79.899 Other long term (current) drug therapy; Z95.1 Presence of aortocoronary bypass graft; Z86.73 Personal history of transient ischemic attack (TIA), and cerebral infarction without residual deficits; Z87.891 Personal history of nicotine dependence; Z79.82 Long term (current) use of aspirin; I25.2 Old myocardial infarction; Z98.890 Other specified postprocedural states
CPT/HCPCS: 33208; 36415; 71045; 71046; 80048; 80053; 82550; 82553; 83735; 84439; 84443; 84484; 85025; 85027; 85610; 85730; 93005; 93306; 96360; 96361; 99285